=== PATIENT | male | born 1960 | race Caucasian/White ===

== ENCOUNTER 2017-04-17 22:39 | Emergency (ER) | payer OTHER ==
[~2017-04-17] VITALS: Ht 188 cm; Wt 82.4 kg
[~2017-04-17 22:39] MED LIST: LITHIUM CARBON300 MG PO; PERCOCET 5/31 TABLET PO; SEROQUEL300 MG PO; XANAX1 MG PO
[2017-04-18] MEDS ORDERED: LAMOTRIGINE200 MG PO (00:30)
[2017-04-18] MEDS ORDERED: CEFDINIR300 MG PO (00:49)
[2017-04-18 00:54] VITALS: BP 146/85
== END 2017-04-18 00:57 | disposition home or self-care (01) ==
LOC: EME 22:39 → RME 22:39
DX: H66.91 Otitis media, unspecified, right ear (principal); F17.200 Nicotine dependence, unspecified, uncomplicated
CPT/HCPCS: 99281; 99284